=== PATIENT | female | born 1975 | race Caucasian/White ===

== ENCOUNTER 2020-06-05 01:47 | Emergency (ER) | payer MEDICAID ==
[~2020-06-05] VITALS: Ht 154.9 cm; Wt 75.7 kg
[2020-06-05 01:55] VITALS: BP 139/78
--- NOTE | 2020-06-05 02:07 | NUR ---
45 Y/O FEMALE PRESENTS TO ER WITH C/O RIGHT SHOULDER PAIN. 04/19. PT IS MALIAN SPEAKING ONLY. PT STATED A BOX FELL ON HER RT SHOULDER AT WORK. DENIES NAUSEA, VOMITING, DIARRHEA, HEADACHE, FEVER, SOB, COUGH. LMP: 05/30/20 VSS, R/R EQUAL, AND UNLABORED. SIDE RAIL X1, BED IN LOW POSITION, WILL CONTINUE TO MONITOR. NKDA PMH: DM
[2020-06-05 02:54] VITALS: BP 139/78
--- NOTE | 2020-06-05 02:54 | NUR ---
Patient discharged with v/s stable. Written and verbal after care instructions given and explained. Patient alert, oriented and verbalized understanding of instructions. Ambulatory with steady gait. All questions addressed prior to discharge. ID band removed. Patient advised to follow up with PMD. Rx of NORCO; IBUPROFEN given. Patient educated on indication of medication including possible reaction and side effects. Opportunity to ask questions provided and answered.
== END 2020-06-05 02:54 | disposition home or self-care (01) ==
LOC: MED 01:47
DX: S46.811A Strain of other muscles, fascia and tendons at shoulder and upper arm level, right arm, initial encounter (principal); M62.838 Other muscle spasm; E11.9 Type 2 diabetes mellitus without complications; W20.8XXA Other cause of strike by thrown, projected or falling object, initial encounter; Y93.89 Activity, other specified; Y92.89 Other specified places as the place of occurrence of the external cause; Y99.0 Civilian activity done for income or pay
CPT/HCPCS: 73060; 99283; Q0092

== ENCOUNTER 2021-05-14 01:07 | Emergency (ER) | payer MEDICAID ==
[~2021-05-14] VITALS: Ht 152.4 cm; Wt 61.2 kg
[2021-05-14 01:20] VITALS: BP 114/75
--- NOTE | 2021-05-14 01:23 | NUR ---
to lobby a/w bed via wheelchair
[2021-05-14] MEDS ORDERED: LORazepam 0.5 MG TAB PO ONE (01:40)
--- NOTE | 2021-05-14 01:40 | NUR ---
medicated as per [facility] order, tolerated well.
--- NOTE | 2021-05-14 01:40 | NUR ---
seen and examined by mya
[2021-05-14 01:49] VITALS: BP 114/75
--- NOTE | 2021-05-14 06:13 | NUR ---
patient to bed 11
--- NOTE | 2021-05-14 07:09 | NUR ---
Pt report given to Elaine NGUYEN. Transfer of care at this time.
--- NOTE | 2021-05-14 07:10 | NUR ---
RECEIVED REPORT FROM WENDY SUNSHINE. TRANSFER OF CARE AT THIS TIME.
--- NOTE | 2021-05-14 07:10 | NUR ---
RECEIVED REPORT FROM WENDY SUNSHINE. TRANSFER OF CARE AT THIS TIME.
--- NOTE | 2021-05-14 08:43 | NUR ---
IV ESTABLISHED TO RIGHT FA 20G GOOD BLOOD RETURN, LABS COLLECTED WALKED TO LAB.
--- NOTE | 2021-05-14 08:44 | NUR ---
OBTAINED TRANSFER CONSENT, PLACED IN PT CHART.
--- NOTE | 2021-05-14 09:07 | NUR ---
REPORT GIVEN TO WENDY LAM FOR ETA PENDING TRANFER 1HR.
[2021-05-14 09:13] LABS: EOSINOPHILS # (AUTO) 0.2 K/uL (0-0.4); HEMATOCRIT 30.8 % (36-48); HEMOGLOBIN 9.8 g/dL (12.0-16.0); LYMPHOCYTES # (AUTO) 0.8 K/uL (2.5-16.5); LYMPHOCYTES % (AUTO) 10.9 % (20.5-51.1); MEAN CORPUSCULAR HEMOGLOBIN 26 pg (27-31); MEAN CORPUSCULAR HGB CONC 32 g/dL (33-37); MEAN CORPUSCULAR VOLUME 82.2 fL (80-94); MONOCYTES # (AUTO) 0.3 K/uL (0.8-1.0); MONOCYTES % (AUTO) 4.5 % (1.7-9.3); NEUTROPHILS # (AUTO) 6.4 K/uL (1.8-7.7); NEUTROPHILS % (AUTO) 82.6 % (42.2-75.2); PLATELET COUNT (AUTO) 445 K/uL (140-450); RED BLOOD CELL COUNT(AUTO) 3.75 MIL/uL (4.20-5.40); RED CELL DISTRIBUTION WIDTH 17.3 % (11.6-13.7); WHITE BLOOD COUNT (AUTO) 7.7 K/uL (4.8-10.8)
[2021-05-14 09:15] LABS: ANION GAP 10.8 (8-16); CARBON DIOXIDE 25.7 mmol/L (21-32); CREATININE 0.5 mg/dL (0.6-1.3); POTASSIUM 3.5 mmol/L (3.5-5.1)
[2021-05-14 09:20] LABS: PROTHROMBIN TIME 9.3 secs (10.8-13.4)
== END 2021-05-14 11:27 ==
LOC: MED 01:07
DX: R51.9 Headache, unspecified (principal); R42 Dizziness and giddiness; E11.9 Type 2 diabetes mellitus without complications
CPT/HCPCS: 36415; 70450; 80048; 85025; 85610; 85730; 93005; 99285